=== PATIENT | female | born 1950 | race Caucasian/White ===

== ENCOUNTER 2017-02-26 06:30 | Inpatient (IN) | payer BC, MEDICARE ==
[~2017-02-26] VITALS: Ht 170.2 cm; Wt 104.5 kg
[2017-02-26] MEDS ORDERED: OXYC1TAB23 PO (07:02)
[2017-02-26] MEDS ORDERED: CLON1TAB PO (07:16)
[2017-02-26] MEDS ORDERED: LEVO10VL IM (07:18)
[2017-02-26] MEDS ORDERED: ERGO500014 PO (07:19)
[2017-02-26] MEDS ORDERED: SIMV40TA2 PO (07:20)
[2017-02-26] MEDS ORDERED: SERT-138 PO (07:21)
[2017-02-26] MEDS ORDERED: OMEP40CA2 PO (07:22)
[2017-02-26] MEDS ORDERED: FLUT11IN INH (07:23)
[2017-02-26] MEDS ORDERED: TYLE325T5 PO (07:24)
[2017-02-26] MEDS ORDERED: PROAAER10 INH (07:24)
[2017-02-26] MEDS ORDERED: ONDANSETRON 4MG/2ML VIAL (J2405) IV ONE (07:30)
[2017-02-26] MEDS ORDERED: NS 500 ML IV ONE (07:30)
[2017-02-26] MEDS ORDERED: KETOROLAC 30 MG/ML VIAL (J1885) IV ONE ×2 (07:30→09:15)
[2017-02-26] MEDS ORDERED: MORPHINE 4 MG/ML 1ML SYRINGE IV ONE (07:30)
[2017-02-26 07:59] LABS: BASO % 0.2 % (0.0-1.0); EOS # 0.1 K/mm3 (0.0-0.50); EOS % 0.8 % (0.0-3.0); LARGE UNSTAINED CELL % 0.3 % (0.0-4.0); LYMPH # 0.6 K/mm3 (1.5-4.5); LYMPH % 5.1 % (24.0-44.0); MEAN CORPUSCULAR HEMOGLOBIN 30.2 pg (27.0-33.0); MEAN CORPUSCULAR HGB CONC 34.5 g/dl (32.0-36.5); MEAN CORPUSCULAR VOLUME 87.6 fl (80.0-96.0); MONO # 0.4 K/mm3 (0.0-0.8); MONO % 3.7 % (0.0-5.0); NEUTROPHILS # 9.3 K/mm3 (1.8-7.7); NEUTROPHILS % 89.8 % (36.0-66.0); PLATELET COUNT, AUTOMATED 178 k/mm3 (150-450); RED CELL DISTRIBUTION WIDTH 13.6 % (11.5-14.5); WHITE BLOOD COUNT 10.4 K/mm3 (4.0-10.0)
[2017-02-26 08:16] LABS: ALBUMIN 4.1 GM/DL (3.2-5.2); ALBUMIN/GLOBULIN RATIO 1.21 (1.00-1.93); ALKALINE PHOSPHATASE 133 U/L (45-117); ALT/SGPT 96 U/L (12-78); ANION GAP 10 MEQ/L (8-16); AST/SGOT 47 U/L (15-37); BILIRUBIN,DIRECT < 0.1 MG/DL (0.0-0.2); BILIRUBIN,TOTAL 0.6 MG/DL (0.2-1.0); BLOOD UREA NITROGEN 29 MG/DL (7-18); CALCIUM LEVEL 8.7 MG/DL (8.8-10.2); CARBON DIOXIDE LEVEL 21 MEQ/L (21-32); CHLORIDE LEVEL 108 MEQ/L (98-107); CREATININE FOR GFR 0.79 MG/DL (0.55-1.02); GLOMERULAR FILTRATION RATE > 60.0 (>45); GLUCOSE, FASTING 146 MG/DL (80-110); POTASSIUM SERUM 3.3 MEQ/L (3.5-5.1); SODIUM LEVEL 139 MEQ/L (136-145); TOTAL PROTEIN 7.5 GM/DL (6.4-8.2)
--- NOTE | 2017-02-26 08:28 | REP ---
Clinical: Left flank pain. Findings: Moderate acute left-sided obstructive uropathy with perinephric and periureteral stranding secondary to a 5 mm calculus at the ureteropelvic junction (UPJ). Bilateral nonobstructing renal calculi are also appreciated measuring up to approximately 6 mm in the left kidney and 7.5 mm in the right kidney. The remainder of the ureters and collapsed bladder appear normal. Liver, spleen, pancreas, and bilateral adrenal glands are normal for noncontrast examination. Gallbladder demonstrates 2 mm presumed gallstone without acute cholecystitis. The enteric system is without obstruction or acute inflammatory process. Evidence of prior right ventral hernia repair. Pelvis demonstrates age appropriate uterus / adnexa. No pelvic fluid or ascites. No free air. No adenopathy. Atherosclerotic changes of the aorta noted without aneurysm. Musculoskeletal structures are intact. Lung bases are clear. Impression: 1. Acute moderate left-sided obstructive uropathy with a 5 mm calculus at the UPJ. Bilateral nonobstructing renal calculi measuring up to 7.5 mm. 2. Cholelithiasis Signed by Josue Figueroa MD 02/26/2017 08:19 A
[2017-02-26] MEDS ORDERED: HYDROmorphone HCL 1 MG/ML SYRINGE (J1170) IV ONE (09:15)
[2017-02-26] MEDS ORDERED: MORPHINE 2 MG/ML 1ML SYRINGE IV ONE (11:00)
[2017-02-26] MEDS ORDERED: CONRAY-60 60% 50ML VIAL (Q9961) As Ordered ONE (13:46)
[2017-02-26] MEDS ORDERED: CLON0.5T PO (14:14)
[2017-02-26] MEDS ORDERED: VITA20008 PO (14:14)
[2017-02-26] MEDS ORDERED: LEVO112T2 PO (14:14)
[2017-02-26] MEDS ORDERED: PROM25TA PO (14:16)
--- NOTE | 2017-02-26 14:24 | CR ---
DATE OF CONSULTATION: 02/26/2017 This 66-year-old female was evaluated in consultation as requested by Dr. Hurd on 02/26/2017 for a one day history of left renal colic. She had an acute onset of left renal colic at 0300 hours. She is a recurrent stone former that has had prior shock wave lithotripsy. She has been followed by urology in [place], [place]. Prior to presentation, there is no history of voiding symptoms, gross hematuria, urinary tract infection, urolithiasis passage or constitutional symptoms. PAST MEDICAL HISTORY: Significant for: 1. Cardiac ablation (PSVT). 2. Hypothyroidism. 3. Hyperparathyroidism. 4. Migraines headaches. 5. Hypercholesterolemia. 6. Tonsillectomy. 7. Exploratory laparotomy with bowel resection for diverticulitis with temporary colostomy. REVIEW OF SYSTEMS: Negative for diabetes, hypertension, pulmonary pathology, epilepsy, CVA, glaucoma, peptic ulcer disease, cholelithiasis or bloodborne diseases. CURRENT MEDICATIONS: Include levothyroxine, ergocalciferol, simvastatin, sertraline, omeprazole, Flovent and ProAir. ALLERGIES: She has no allergies to medications. SOCIAL HISTORY: She is . She is a five pack year smoker who quit in 1975. She does not consume alcohol. FAMILY HISTORY: Significant for meningioma on the optic nerve and osteoarthritis (OA) on the maternal side. GENERAL EXAMINATION: Revealed a comfortable individual. Her heart rate was 83, respiratory rate was 22, blood pressure was 139/68 and temperature was 97.6 degrees Fahrenheit. Palpation of the head and neck failed to reveal the presence of lymphadenopathy. Auscultation of the chest is clear. Normal heart sounds. Examination of the back and abdomen were benign. A urinalysis (02/26/2017) demonstrated trace leukocytes, 3+ microhematuria with positive nitrites and a pH of 5.0. Serum hematologic and biochemical indices determination (02/26/2017) demonstrated a hemoglobin of 13.4, leukocyte count of 10.4, and creatinine of 0.79. Computer tomography of the abdomen and pelvis without intravenous contrast (02/26/2017) demonstrated a 5 mm left ureteropelvic junction (UPJ) calculus with moderate left hydronephrosis and bilateral nonobstructing 6 and 7 mm renal calculi. ASSESSMENT: 1. Left ureteropelvic junction calculus. 2. Bilateral renal calculi. 3. Question of urinary tract infection. 4. Hypothyroidism. 5. Paroxysmal supraventricular tachycardia (PSVT) status post cardiac ablation. 6. Hyperparathyroidism. 7. Migraines headaches. PLAN: The above findings were discussed with the patient, nursing staff and emergentologist. Following nothing by mouth status, cystoscopy, left retrograde ureteropyelography and double J stent insertion will be performed. A urine specimen for culture and sensitivity was obtained. Ciprofloxacin 400 mg IV plastic and reconstructive surgeon to OR is appropriate. Following the procedure, she may be discharged home and will followup with her urologist in [place], [place]. It was emphasized to both the patient and her friend that the double J stent is a temporizing measure and must be removed. Should you require additional information, please do not hesitate to contact me. Thank you for the confidence of your referral.
[2017-02-26] MEDS ORDERED: CIPROFLOXACIN/D5W 400 MG/200 ML BAG (J0744) As Ordered ONE (14:31)
[2017-02-26] MEDS ORDERED: PROPOFOL 200 MG/20 ML VIAL As Ordered ONE (14:50)
[2017-02-26] MEDS ORDERED: dexameTHASONE 4 MG/ML 1ML VIAL (J1100) As Ordered ONE (14:50)
[2017-02-26] MEDS ORDERED: LIDOCAINE 2% INJ 100 MG/5 ML SDV (FOR ANES.) As Ordered ONE (14:50)
[2017-02-26] MEDS ORDERED: fentaNYL 100 MCG/2 ML INJECTION (J3010) As Ordered ONE (14:50)
[2017-02-26] MEDS ORDERED: MIDAZOLAM INJ 2 MG/2 ML VIAL (J2250) As Ordered ONE (14:50)
[2017-02-26] MEDS ORDERED: PHENYLephrine HCL 500 MCG/5 ML (100MCG/ML) SYRINGE (J2370) As Ordered ONE (14:51)
[2017-02-26] MEDS ORDERED: ONDANSETRON 4MG/2ML VIAL (J2405) As Ordered ONE (15:05)
--- NOTE | 2017-02-26 15:44 | REP ---
Clinical: Left-sided obstructive uropathy. Technique: Retrograde pyelogram with intraoperative fluoroscopic imaging. Findings: Multiple intraoperative fluoroscopic images demonstrate the patient to be status post pyelogram with left ureteral stent placement. Images suggest mild hydronephrosis. Total fluoroscopic time 15 seconds. Impression: Status post left ureteral stent placement for obstructive uropathy. Signed by Josue Figueroa MD 02/26/2017 03:35 P
[2017-02-26] MEDS ORDERED: LR 1,000 ML IV SCH ×2 (15:45)
[2017-02-26] MEDS ORDERED: HYDROmorphone HCL 1 MG/ML SYRINGE (J1170) IV PRN (15:45)
[2017-02-26] MEDS ORDERED: ONDANSETRON 4MG/2ML VIAL (J2405) IV PRN ×2 (15:45→17:00)
[2017-02-26] MEDS ORDERED: fentaNYL 100 MCG/2 ML INJECTION (J3010) IV PRN (15:45)
[2017-02-26] MEDS ORDERED: METOCLOPRAMIDE INJ 10MG/2ML VIAL (J2765) IV PRN (15:45)
[2017-02-26 16:05] VITALS: BP 114/68
[2017-02-26 16:35] VITALS: BP 120/72
[2017-02-26] MEDS: ANEXSIA, NORCO 7.5MG/325MG TABLET(HYDROCODONE/APAP) PO PRN (17:15)
[2017-02-26 17:35] VITALS: BP 118/70
[2017-02-26] MEDS: ACETAMINOPHEN TAB 650MG DOSE (2X325MG) PO PRN (18:22)
[2017-02-26 18:35] VITALS: BP 124/70
[2017-02-26] MEDS ORDERED: KETOROLAC 30 MG/ML VIAL (J1885) IV PRN (19:00)
[2017-02-26 19:10] LABS: ADD MANUAL DIFFER YES; MEAN CORPUSCULAR HEMOGLOBIN 29.6 pg (27.0-33.0); MEAN CORPUSCULAR HGB CONC 32.8 g/dl (32.0-36.5); MEAN CORPUSCULAR VOLUME 90.2 fl (80.0-96.0); PLATELET COUNT, AUTOMATED 156 k/mm3 (150-450); RED CELL DISTRIBUTION WIDTH 13.8 % (11.5-14.5); WHITE BLOOD COUNT 12.1 K/mm3 (4.0-10.0)
[2017-02-26] MEDS ORDERED: IPRATROPIUM 0.5MG/ALBUTEROL 2.5MG INH SOL UD 3ML (DUONEB)(J7620) NEB PRN (19:15)
[2017-02-26] MEDS ORDERED: ALBUTEROL 90 MCG/ACT 8GM HFA INHALER INH PRN (19:15)
[2017-02-26 19:24] VITALS: BP 128/62
[2017-02-26 19:24] LABS: ANION GAP 9 MEQ/L (8-16); BLOOD UREA NITROGEN 31 MG/DL (7-18); CALCIUM LEVEL 8.2 MG/DL (8.8-10.2); CARBON DIOXIDE LEVEL 23 MEQ/L (21-32); CHLORIDE LEVEL 109 MEQ/L (98-107); CREATININE FOR GFR 0.98 MG/DL (0.55-1.02); GLOMERULAR FILTRATION RATE > 60.0 (>45); GLUCOSE, FASTING 139 MG/DL (80-110); POTASSIUM SERUM 3.7 MEQ/L (3.5-5.1); SODIUM LEVEL 141 MEQ/L (136-145)
[2017-02-26 19:50] LABS: BANDS 4 % (< 11)
[2017-02-26] MEDS: KCL 40MEQ in NS 1000ML 1,000 ML IV SCH (20:00)
--- NOTE | 2017-02-26 20:07 | HPE ---
DATE OF ADMISSION: 02/26/2017 CHIEF COMPLAINT: A 66-year-old female coming in complaining of abdominal pain. Status post evaluation in the emergency room, noted to have acute moderate left-sided obstructive uropathy with 5 mm calculus at the ureteropelvic junction (UPJ), bilateral nonobstructing renal calculi measuring up to 7.5 mm, and cholelithiasis. The patient had urinary tract infection (UTI) and was evaluated by Dr. Freire, the urologist, and is status post left-sided stent placement. The patient was initially started on ciprofloxacin and did well with stent placement, but unfortunately, after the procedure, the patient developed fever and continued to have repeat temperature greater than 101. Therefore, the patient is being admitted for further evaluation and treatment. The patient states that she had some cough at home, along with nausea and vomiting earlier today. The patient also mentions that she has a history of irritable bowel syndrome and had had some loose stool today. The patient states that she has been staying at the [facility] but her bowel movement prior to her loose stool today was more firm. The patient denies any fever. The patient is status post evaluation by Dr. Freire. The patient is awake, alert, oriented in the pediatric floor as a medical/surgical overflow. Denies any significant complaints at this time. Resting comfortably, requesting her home medication for tonight. The patient had acute onset of renal colic earlier in the day and she has had a prior history of shock-wave lithotripsy as well. REVIEW OF SYSTEMS: 10-point review of systems is negative other than those described in the history of present illness (HPI). PAST MEDICAL HISTORY: Significant for: 1. Anxiety. 2. Hypothyroidism. 3. Gastroesophageal reflux disease (GERD). 4. Hyperlipidemia. PAST SURGICAL HISTORY: 1. Today, left-sided stent placement. 2. Surgery due to diverticulosis. 3. Had a history of colostomy bag that has been reversed. 4. Hernia repair. 5. Appendectomy. 6. Cardiac ablation due to supraventricular tachycardia (SVT). SOCIAL HISTORY: The patient denies smoking, drinking or drug abuse. FAMILY MEDICAL HISTORY: Significant for both parents dying of old age. Mother unfortunately had meningioma. ALLERGIES: The patient is allergic to CODEINE which causes her to have migraine. HOME MEDICATIONS: - acetaminophen 325 two tablets every four hours as needed for fever - albuterol two puffs every four hours as needed for shortness of breath - cholecalciferol vitamin D3 2000 units by mouth daily - clonazepam 1 mg by mouth at bedtime as needed for anxiety - Flovent HFA two puffs twice a day - levothyroxine 112 mcg by mouth daily - omeprazole 40 mg daily - oxycodone/acetaminophen one tablet every four hours as needed for pain - promethazine 25 mg by mouth as needed for nausea - sertraline 100 mg by mouth at bedtime - simvastatin 40 mg at bedtime PHYSICAL EXAMINATION: VITAL SIGNS: Temperature is 102.3 temperature maximum (T-max), heart rate 105, respiratory rate 20, blood pressure 118/70, saturating 95% on room air. HEENT: Normocephalic. No trauma noted. Inspection of the eyes, nose and throat within normal. Pupils equal, round, and reactive to light and accommodation. Mucus is moist. NECK: Supple. No tracheal deviation. CARDIAC: S1, S2. Slightly tachycardic. Pulses present. LUNGS: Equal air entry. I did not hear any significant wheezes, rales, rhonchi. ABDOMEN: Soft, no guarding, no rigidityh, no peritoneal sign. EXTREMITIES: Lower extremities no significant pitting edema. Capillary refill present all four extremities. SKIN: Intact warm to touch. afebrile. NEUROLOGIC: The patient is currently awake, alert, and oriented times three. Cranial nerves grossly intact. Motor and sensory are intact. Normal mood and affect for current situation, and family at the bedside. LABORATORY DATA: In terms of diagnostic studies, the patient had WBC of 10.4, hemoglobin and hematocrit and platelet count are within normal. Complete metabolic profile is within normal except potassium 3.3, chloride 108, BUN of 29, glucose 146, calcium 8.7. AST and ALT are 47 and 96 respectively. Alkaline phosphatase is 133. Otherwise complete metabolic profile is within normal. Lactate is 1.9 within normal, and lipase is within normal. MICROBIOLOGY: UA is positive for urinary tract infection. Urine culture is still pending at this time. IMAGING: The patient also had an imaging done, of CT abdomen and pelvis which showed as her radiology acute moderate left-sided obstructive uropathy with a 5 mm calculus at the UPJ. Bilateral nonobstructing renal calculi measuring up to 7.5 and cholelithiasis. The patient also had retrograde pyelogram, and as per radiology shows status post left ureteral stent placement for obstructive uropathy. ASSESSMENT AND PLAN: This is a 66-year-old female with significant past medical history of lithotripsy in the past, anxiety, hypothyroidism, gastroesophageal reflux disease, hyperlipidemia, history of supraventricular tachycardia status post cardiac ablation, who presented with signs of left-sided obstructive uropathy and urinary tract infection, status post left ureteral stent placement. 1. Left ureteral stent placement due to obstructive uropathy. Urinary tract infection (UTI). Fever. Suspect fever related to UTI, but the patient also has a history of cough and nausea and vomiting prior to her admission to the hospital today. In addition, loose diarrhea. Therefore, the patient will be given IV fluids. We will empirically treat with levofloxacin and obtain a chest x-ray. Urine culture is pending at this time. The patient is status post ureteral stent placement. Further recommendations as per Dr. Freire. We will also obtain blood culture. Recommend spirometer. Evaluate with thyroid stimulating hormone (TSH) and gastrointestinal (GI) panel study including for Clostridium (C.) difficile. Continue to vitally monitor and provide supportive care. 2. Hypokalemia. Replace and monitor. Obtain magnesium level. 3. Transaminitis. Most likely secondary to infection and problem number one. We will also obtain hepatitis panel for further evaluation and try to avoid Tylenol if possible. 4. Resume respiratory regimen. 5. Anxiety. May resume Zoloft and as needed clonazepam. 6. Hypothyroidism. Resume Synthroid. TSH level. 7. Gastroesophageal reflux disease (GERD). Resume omeprazole. 8. Hyperlipidemia. Resume statin. 9. Deep venous thrombosis (DVT) prophylaxis with sequential compression devices (SCDs) and will defer to further management to the surgeon.
[2017-02-26] MEDS: LevoFLOXacin IV 750 MG in APPROPRIATE DILUENT 1 EA IV SCH (20:22)
[2017-02-26 20:35] VITALS: BP 116/56
--- NOTE | 2017-02-26 20:40 | REPUSA ---
Clinical history: cough. Comparison: None. Findings: The mediastinum and cardiac silhouette are within normal limits. The lungs are clear. No pl eural effusion or pneumothorax is seen. The osseous structures and soft tissues are unremarkable. Impression: No acute disease.
[2017-02-26] MEDS: SERTRALINE 100 MG TAB PO SCH (20:51)
[2017-02-26] MEDS: SIMVASTATIN 40 MG TAB PO SCH (20:51)
[2017-02-27] VITALS: BP 112/54
[2017-02-27] MEDS: FLUTICASONE HFA 110 MCG 12 GM INHALER (FLOVENT) INH SCH ×3 (00:41→20:46)
[2017-02-27] MEDS ORDERED: CIPROFLOXACIN 400 MG in APPROPRIATE DILUENT 1 EA IV SCH (02:00)
[2017-02-27 04:00] VITALS: BP 137/70
[2017-02-27] MEDS: PERCOCET 5MG/325MG TAB PO PRN ×2 (04:27→16:22)
[2017-02-27] MEDS: KCL 40MEQ in NS 1000ML 1,000 ML IV SCH (04:28)
--- NOTE | 2017-02-27 06:14 | RO ---
DATE OF PROCEDURE: 02/26/2017 PREOPERATIVE DIAGNOSES: 1. Left ureteropelvic junction 5 mm calculus. 2. Bilateral renal calculi. 3. Urinary tract infection. POSTOPERATIVE DIAGNOSES: 1. Left ureteropelvic junction 5 mm calculus. 2. Bilateral renal calculi. 3. Urinary tract infection. PROCEDURE: Cystoscopy, left retrograde ureteropyelography, 6 Estonian Barnard JJ stent insertion, fluoroscopy. SURGEON: Dr. Pop Freire DIMETHYLANILINE SULFATOR OPERATOR: ANESTHESIA: General. COMPLICATIONS: None. ESTIMATED BLOOD LOSS: 0 mL. PROCEDURE: In lithotomy position, the patient was prepped and draped in the usual fashion. Plain fluoroscopy of the upper urinary tracts failed to confirm the presence of radiopaque calculi. A 23 Estonian cystoscope was advanced into the urinary bladder under direct vision. A urine specimen for culture and sensitivity was obtained. Saunders cystoscopy revealed normal ureteric orifices bilaterally and normal urothelium. There was no evidence of tumor, active bleeding or urolithiasis. Normal bladder neck and urethra were noted. A 5 Estonian open ended ureteral catheter was used to intubate the left ureteric orifice. Gentle retrograde ureteropyelography confirmed a normal caliber ureter with mild hydronephrosis. A questionable filling defect was noted at the ureteropelvic junction. Care was taken to minimize the risk of pyelovenous back flow. Under fluoroscopy, a 0.035 Glidewire was advanced up into the left renal pelvis. The 5 Estonian open ended ureteral catheter was removed and a 6 Estonian Barnard JJ stent was positioned under fluoroscopy in direct vision. Its position was confirmed. Prior to removal of the instruments, the bladder was drained. At the conclusion of the procedure, sponge and instrument counts were correct. Estimated blood loss for the procedure was 0 mL. In the recovery room, the patient was alert and stable. DISPOSITION: Exit prescription (ciprofloxacin) provided. The patient will follow up with her primary urologist in [place], [place], for definitive stone management. The temporary nature of the JJ stent was emphasized to the patient and her friend.
[2017-02-27] MEDS: LEVOTHYROXINE 112MCG TABLET (0.112MG) PO SCH (06:28)
[2017-02-27 07:12] LABS: ADD MANUAL DIFFER YES; MEAN CORPUSCULAR HEMOGLOBIN 30.2 pg (27.0-33.0); MEAN CORPUSCULAR HGB CONC 33.9 g/dl (32.0-36.5); MEAN CORPUSCULAR VOLUME 89.2 fl (80.0-96.0); PLATELET COUNT, AUTOMATED 138 k/mm3 (150-450); RED CELL DISTRIBUTION WIDTH 13.9 % (11.5-14.5); WHITE BLOOD COUNT 11.3 K/mm3 (4.0-10.0)
[2017-02-27 07:26] LABS: BANDS 2 % (< 11)
[2017-02-27 07:36] LABS: ANION GAP 8 MEQ/L (8-16); BLOOD UREA NITROGEN 28 MG/DL (7-18); CALCIUM LEVEL 7.9 MG/DL (8.8-10.2); CARBON DIOXIDE LEVEL 23 MEQ/L (21-32); CHLORIDE LEVEL 112 MEQ/L (98-107); CREATININE FOR GFR 0.83 MG/DL (0.55-1.02); GLOMERULAR FILTRATION RATE > 60.0 (>45); GLUCOSE, FASTING 109 MG/DL (80-110); MAGNESIUM LEVEL 2.1 MG/DL (1.8-2.4); POTASSIUM SERUM 4.2 MEQ/L (3.5-5.1); SODIUM LEVEL 143 MEQ/L (136-145)
[2017-02-27 08:00] VITALS: BP 116/61
[2017-02-27] MEDS: LACTOBACILLUS ACIDOPHILUS CAP (BACID) PO SCH ×3 (08:03→18:21)
[2017-02-27] MEDS: MIRALAX *UNIT DOSE* 17GM PACKET PO SCH (09:00)
[2017-02-27] MEDS: SENOKOT S TAB PO SCH ×2 (09:11→21:00)
[2017-02-27] MEDS: OMEPRAZOLE 20 MG CAP PO SCH (09:11)
[2017-02-27] MEDS: VITAMIN D 1,000 INTERNATIONAL UNITS TABLET PO SCH (09:11)
[2017-02-27] MEDS: ACETAMINOPHEN TAB 650MG DOSE (2X325MG) PO PRN ×3 (09:13→23:18)
[2017-02-27 12:00] VITALS: BP 131/58
[2017-02-27 16:00] VITALS: BP 142/78
--- NOTE | 2017-02-27 16:47 | IPN ---
DATE: 02/27/2017 The patient is seen and examined. No acute events overnight. Admitted overnight status post cystoscopy with left retrograde ureteropyelography with JJ stent insertion for left ureteropelvic junction 5 mm calculus and urinary tract infection (UTI). The patient is seen and examined. No acute events overnight. She was febrile overnight, subsequently admitted and given Levaquin. Denies any chest pain, pressure or discomfort. Reported fatigue. VITAL SIGNS: Temperature 100.8, pulse 98, respiratory rate 20, blood pressure 142/78, pulse oximetry 100% on room air. LABORATORY DATA: WBC 11.3, hemoglobin and hematocrit 11.2/33.2, platelets 138. Chemistry: Sodium 143, potassium 4.2, chloride 112, bicarbonate 23, BUN 28, creatinine 0.83. PHYSICAL EXAMINATION: GENERAL: Patient alert and oriented times three in no acute distress. HEENT: Normocephalic, atraumatic. PULMONARY: Bilaterally clear to auscultation. No significant wheeze. ABDOMEN: Soft, nontender. BACK: No costovertebral angle (CVA) tenderness. EXTREMITIES: No edema of bilateral lower extremities. NEUROLOGIC: No focal deficits. ASSESSMENT AND PLAN: This is a 66-year-old female patient with underlying medical history of nephrolithiasis, lithotripsy in the past, anxiety, hypothyroidism, gastroesophageal reflux disease (GERD), dyslipidemia, history of supraventricular tachycardia (SVT) with cardiac ablation who presented with signs of left-sided obstructive uropathy and urinary tract infection (UTI) status post left ureteral stent placement. PROBLEMS: 1. Nephrolithiasis with urinary tract infection (UTI) and evidence of early obstructive uropathy, status post ureteral stent placement. Followup urology recommendation. The patient was admitted status post fever. IV fluids have been given. X-ray has been done. Followup urinalysis (UA), urine cultures, gastrointestinal (GI) panel. The patient is on Levaquin. Followup cultures. IV fluids. 2. Hypokalemia. Supplement potassium. Followup potassium and magnesium. 3. Transaminitis. We will continue to follow. Obtain hepatitis panel. 4. Anxiety. Continue current medication. 5. Hypothyroidism. Continue Synthroid. Followup thyroid studies. 6. Gastroesophageal reflux disease (GERD). Continue proton pump inhibitor (PPI). 7. Dyslipidemia. Continue statin. 8. Deep vein thrombosis (DVT) prophylaxis. Heparin subcutaneous. DISPOSITION: Pending clinical improvement and further urology recommendation.
[2017-02-27 20:00] VITALS: BP 125/69
[2017-02-27] MEDS: HEPARIN SOD (PORCINE) 5000 UNITS/ML VIAL SQ SCH (21:00)
[2017-02-27] MEDS: SERTRALINE 100 MG TAB PO SCH (21:01)
[2017-02-27] MEDS: LevoFLOXacin IV 750 MG in APPROPRIATE DILUENT 1 EA IV SCH (21:01)
[2017-02-27] MEDS: SIMVASTATIN 40 MG TAB PO SCH (21:01)
[2017-02-27] MEDS: clonazePAM 0.5 MG TAB PO PRN (21:06)
[2017-02-28] VITALS: BP 135/64
[2017-02-28] MEDS: LEVOTHYROXINE 112MCG TABLET (0.112MG) PO SCH (06:12)
[2017-02-28] MEDS: LACTOBACILLUS ACIDOPHILUS CAP (BACID) PO SCH ×3 (07:55→18:10)
[2017-02-28] MEDS: ANEXSIA, NORCO 7.5MG/325MG TABLET(HYDROCODONE/APAP) PO PRN ×2 (07:56→14:01)
[2017-02-28] MEDS: MIRALAX *UNIT DOSE* 17GM PACKET PO SCH (07:57)
[2017-02-28] MEDS: SENOKOT S TAB PO SCH ×2 (07:57→20:29)
[2017-02-28 08:00] VITALS: BP 142/78
[2017-02-28 08:28] LABS: MEAN CORPUSCULAR HEMOGLOBIN 29.8 pg (27.0-33.0); MEAN CORPUSCULAR HGB CONC 33.1 g/dl (32.0-36.5); MEAN CORPUSCULAR VOLUME 90.1 fl (80.0-96.0); RED CELL DISTRIBUTION WIDTH 13.8 % (11.5-14.5); WHITE BLOOD COUNT 6.8 K/mm3 (4.0-10.0)
[2017-02-28] MEDS: FLUTICASONE HFA 110 MCG 12 GM INHALER (FLOVENT) INH SCH ×2 (08:28→21:16)
[2017-02-28] MEDS: HEPARIN SOD (PORCINE) 5000 UNITS/ML VIAL SQ SCH ×2 (09:01→20:29)
[2017-02-28] MEDS: OMEPRAZOLE 20 MG CAP PO SCH (09:01)
[2017-02-28] MEDS: VITAMIN D 1,000 INTERNATIONAL UNITS TABLET PO SCH (09:02)
[2017-02-28] MEDS ORDERED: RIZATRIPTAN BENZOATE 10 MG TAB PO PRN (11:45)
[2017-02-28 12:00] VITALS: BP 136/68
[2017-02-28 16:00] VITALS: BP 128/68
--- NOTE | 2017-02-28 16:09 | IPN ---
DATE: 02/28/2017 The patient continues to be febrile with maximum temperature (T-max) of 101.1 in the morning, on Levaquin. Microbiology grew out Klebsiella pneumoniae on 02/26/2017. No growth on blood culture. Resistant to ampicillin, sensitive to Levaquin. PHYSICAL EXAMINATION: VITAL SIGNS: Temperature 101.2 maximum temperature (T-max), current temperature 99.5, pulse 97, respiratory rate 16, blood pressure 142/70, 96% on room air. GENERAL: Awake, alert, and oriented times three, in no acute distress. HEENT: Normocephalic, atraumatic. LUNGS: Clear to auscultation. No wheezing, rales, or rhonchi. HEART: S1, S2, sinus rhythm. ABDOMEN: Soft, nontender, nondistended. BACK: No costovertebral angle (CVA) tenderness. EXTREMITIES: No pitting edema. LABORATORY DATA: Has been reviewed. Microbiology reviewed. ASSESSMENT AND PLAN: A 66-year-old with history of nephrolithiasis, lithotripsy, anxiety, hypothyroidism, reflux, dyslipidemia, supraventricular tachycardia (SVT ) with cardiac ablation who presented with left-sided obstructive uropathy, urinary tract infection (UTI) status post left ureteral stent placement. CURRENT ISSUES: 1. Nephrolithiasis with urinary tract infection with early obstructive uropathy, status post ureteral stent placement. Currently on IV Levaquin but still febrile. Continue with the same. Cultures show sensitivity to Levaquin. May change to oral at discharge. 2. Hypokalemia, resolved. 3. Transaminitis. Hepatitis serology has been sent and appears to be negative. 4. Anxiety. Continue home medications. 5. Hypothyroidism, on Synthroid. 6. Reflux, on proton pump inhibitor (PPI). 7. Dyslipidemia, on statin. 8. Subcutaneous heparin for deep vein thrombosis (DVT) prophylaxis. MTDD
[2017-02-28 20:00] VITALS: BP 141/79
[2017-02-28] MEDS: LevoFLOXacin IV 750 MG in APPROPRIATE DILUENT 1 EA IV SCH (20:29)
[2017-02-28] MEDS: SERTRALINE 100 MG TAB PO SCH (20:30)
[2017-02-28] MEDS: SIMVASTATIN 40 MG TAB PO SCH (20:30)
[2017-02-28] MEDS: PERCOCET 5MG/325MG TAB PO PRN (20:34)
[2017-03-01] VITALS: BP 136/78
[2017-03-01] MEDS: clonazePAM 0.5 MG TAB PO PRN (00:12)
[2017-03-01] MEDS: LEVOTHYROXINE 112MCG TABLET (0.112MG) PO SCH (05:01)
[2017-03-01] MEDS: ANEXSIA, NORCO 7.5MG/325MG TABLET(HYDROCODONE/APAP) PO PRN (05:02)
[2017-03-01] MEDS ORDERED: LEVA750T7 PO ×2 (06:41→09:05)
[2017-03-01] MEDS ORDERED: LevoFLOXacin 750 MG TABLET PO ONE (06:45)
[2017-03-01 07:19] LABS: MEAN CORPUSCULAR HEMOGLOBIN 29.6 pg (27.0-33.0); MEAN CORPUSCULAR VOLUME 89.6 fl (80.0-96.0); RED CELL DISTRIBUTION WIDTH 13.6 % (11.5-14.5); WHITE BLOOD COUNT 5.1 K/mm3 (4.0-10.0)
[2017-03-01 08:00] VITALS: BP 131/69
[2017-03-01] MEDS: FLUTICASONE HFA 110 MCG 12 GM INHALER (FLOVENT) INH SCH (08:07)
[2017-03-01] MEDS: LACTOBACILLUS ACIDOPHILUS CAP (BACID) PO SCH (08:12)
[2017-03-01] MEDS: OMEPRAZOLE 20 MG CAP PO SCH (08:47)
[2017-03-01] MEDS: MIRALAX *UNIT DOSE* 17GM PACKET PO SCH (08:47)
[2017-03-01] MEDS: VITAMIN D 1,000 INTERNATIONAL UNITS TABLET PO SCH (08:48)
[2017-03-01] MEDS: HEPARIN SOD (PORCINE) 5000 UNITS/ML VIAL SQ SCH (08:49)
[2017-03-01] MEDS: SENOKOT S TAB PO SCH (08:50)
[2017-03-01] MEDS ORDERED: OXYC1TAB23 PO (09:01)
[2017-03-01] MEDS ORDERED: SENO8.6T10 PO (09:02)
--- NOTE | 2017-03-02 17:03 | DSES ---
DATE OF ADMISSION: 02/27/2017 DATE OF DISCHARGE: 03/01/2017 CONSULTANTS: Dr. Pop Freire PRIMARY DISCHARGE DIAGNOSES: 1. Left ureteropelvic junction 5 mm calculus. Urinary tract infection. Status post cystoscopy. Stent insertion. 2. Hypokalemia. 3. Transaminitis. 4. Anxiety. 5. Hyperthyroidism. 6. Headache with history of migraines. 7. History of reflux. 8. Dyslipidemia. DISCHARGE MEDICATIONS: - Levaquin 750 by mouth daily for 10 days - Senokot S, one tablet by mouth twice a day as needed for constipation - Percocet, one tablet every 4 as needed for pain, maximum dose of 6. Five days dispensed, 30 tablets dispensed. - Tylenol 650 every 4 as needed for pain or fever - ProAir HFA 2 puffs every 4 as needed - vitamin D3 2000 units daily - clonazepam 1 mg at bedtime as needed - Flovent 2 puffs inhaled twice a day - levothyroxine 112 mcg daily - Prilosec 40 daily - promethazine 25 as needed for nausea - sertraline 100 at bedtime - simvastatin 40 at bedtime HOSPITAL COURSE: This is a 66-year-old female with history of nephrolithiasis, lithotripsy, anxiety, hypothyroidism, reflux, dyslipidemia, supraventricular tachycardia (SVT) with cardiac ablation presented to the emergency room visiting from [place] with complaints of abdominal pains. CT abdomen and pelvis showed a 5 mm calculus at the ureteropelvic junction with bilateral nonobstructing renal calculi. The patient was admitted for urinary tract infection (UTI), urologist, Dr. Freire performed left-sided stent placement. She developed fever, 101. Urine culture grew out Klebsiella, treated with intravenous antibiotics, Levaquin 750 IV daily. She was continued on her home medications. Complained of some headaches. Treated with IV Toradol and Maxalt as needed. White count improved from a peak of 12.1 to 5.1 on discharge. Klebsiella pneumonia and urine culture was resistant to ampicillin. The patient was discharged on Levaquin. Creatinine was stable at 0.79 to 0.83. Blood cultures negative. She developed loose stools with GI panel negative for Clostridium (C.) difficile. Stent was placed on 02/26/2017. LABS FROM DISCHARGE: WBC 5,1, hemoglobin 11.3, hematocrit 34.1, platelet count 135. Sodium 142, potassium 4.2, chloride 112. Bicarbonate 23, BUN 28, creatinine 0.83. Glucose of 109. Magnesium of 2.4. TSH of 1.9. Microbiology 79, urine culture: Klebsiella pneumonia resistant to ampicillin, sensitive to Levaquin. 02/26 blood culture: No growth after 48 hours. GI panel 02/27 negative. IMAGING STUDIES: CT abdomen and pelvis 02/26, acute moderate left-sided obstructive uropathy with a 5 mm calculus at the ureteropelvic junction (UPJ). Bilateral nonobstructing renal calculi measuring up to 7.5 mm with cholelithiasis. Retrograde pyelogram 02/26/2017, status post left ureteral stent placement for obstructive uropathy. Chest x-ray 02/26, no acute disease. Time spent on discharge: 30 minutes.
== END 2017-03-01 10:30 | disposition home or self-care (01) | DRG 465 ==
LOC: M ED 06:30 → M SDC 12:40 → M PED 16:05 → M SDC 18:35 → INTOOBSV 02-27 17:18 → OBSVTOIN 02-27 17:18
PROVIDERS: ADMIT Internal Medicine; ATTEND General Practice
PROC: 0T778DZ Dilation of Left Ureter with Intraluminal Device, Via Natural or Artificial Opening Endoscopic (ICD-10-PCS; principal; 2017-02-26 13:37)
DX: N20.1 Calculus of ureter (principal); N39.0 Urinary tract infection, site not specified; E87.6 Hypokalemia; E78.5 Hyperlipidemia, unspecified; K21.9 Gastro-esophageal reflux disease without esophagitis; F41.9 Anxiety disorder, unspecified; Z79.899 Other long term (current) drug therapy; E03.9 Hypothyroidism, unspecified; B95.61 Methicillin susceptible Staphylococcus aureus infection as the cause of diseases classified elsewhere; K80.20 Calculus of gallbladder without cholecystitis without obstruction; G43.909 Migraine, unspecified, not intractable, without status migrainosus; Z87.891 Personal history of nicotine dependence; N20.0 Calculus of kidney